=== PATIENT | male | born 1980 | race Caucasian/White ===

== ENCOUNTER → 2020-10-08 | Outpatient (CLI) | payer SELFPAY ==
[~2020-10-08] MED LIST: ACHD5005 PO; DOCU-143 PO; OMEP20CA18 PO
--- NOTE | 2020-10-08 16:39 | Diagnostic Imaging Report ---
PROCEDURE: US venous lower ext annabelle. TECHNIQUE: Multiple real-time grayscale images were obtained over the lower extremities in various projections, bilaterally. Additional duplex Doppler and color Doppler images were also obtained. INDICATION: Bilateral leg swelling. FINDINGS: The veins of the lower extremities have good color filling and compressibility. There is phasic flow and a normal response to augmentation. IMPRESSION: Negative venous Doppler of lower extremities. Dictated by: Dictated on workstation # [id number]
--- NOTE | 2020-10-08 17:12 | Diagnostic Imaging Report ---
PROCEDURE: CT angiography of the chest with contrast. TECHNIQUE: Multiple contiguous axial images were obtained through the chest after uneventful bolus administration of intravenous contrast. 3D reconstructed CTA MIP acquisitions were also performed. Auto Exposure Controls were utilized during the CT exam to meet ALARA standards for radiation dose reduction. INDICATION: Shortness of breath, lower extremity edema. CORRELATION: None FINDINGS: Heart size is normal. Thoracic aortic contour is unremarkable. There is somewhat suboptimal contrast opacification of the pulmonary arteries. There is however suggested some very small filling defect in the peripheral right lower lobe pulmonary artery branch. A large central pulmonary embolism is not present. No pathologically enlarged mediastinal and/or hilar lymph nodes. Gastroesophageal junction is unremarkable. The lung diaz are clear of infiltrate. No significant pleural effusion. The visualized portions of the upper abdomen are unremarkable. The visualized osseous structures demonstrate no acute findings. IMPRESSION: 1. Suboptimal contrast opacification of the pulmonary arterial tree. There does appear to be a small filling defect in the peripheral right lower lobe pulmonary artery branch, suggestive of small embolism. The overall thrombus burden however is considered small. Dictated by: Dictated on workstation # [id number]
== END ==
LOC: RAD 16:00
PROVIDERS: ATTEND Nurse Practitioner Family
DX: R06.02 Shortness of breath (principal); R60.0 Localized edema; R00.0 Tachycardia, unspecified
CPT/HCPCS: 71275; 93970

== ENCOUNTER → 2020-10-09 | Outpatient (CLI) | payer SELFPAY ==
[~2020-10-09] MED LIST changes: +CATHETER FLUSH 10 ML SYR IV PRN; +HOLD METFORMIN - RECEIVED CONTRAST 20 ML VIAL IV SCH; +IOHEXOL 350 MG/ML 100 ML (OMNIPAQUE 350) VIAL IV ONE; +NS 100 ML (IVPB) BAG IV ONE
== END ==
LOC: CARD 09:46
PROVIDERS: ATTEND Nurse Practitioner Family
DX: I51.7 Cardiomegaly (principal)
CPT/HCPCS: 93306

== ENCOUNTER 2020-10-16 17:06 | Emergency (ER) | payer SELFPAY ==
[~2020-10-16] VITALS: Ht 187 cm; Wt 163.6 kg
[~2020-10-16 17:06] MED LIST changes: -CATHETER FLUSH 10 ML SYR IV PRN; -HOLD METFORMIN - RECEIVED CONTRAST 20 ML VIAL IV SCH; -IOHEXOL 350 MG/ML 100 ML (OMNIPAQUE 350) VIAL IV ONE; -NS 100 ML (IVPB) BAG IV ONE
[2020-10-16 17:42] LABS: BASOPHILS # (AUTO) 0.1 10^3/uL (0.0-0.1); BASOPHILS % (AUTO) 1 % (0-10); EOSINOPHILS # (AUTO) 0.6 10^3/uL (0.0-0.3); EOSINOPHILS % (AUTO) 5 % (0-10); HEMATOCRIT 46 % (40-54); HEMOGLOBIN 15.4 g/dL (13.3-17.7); LYMPHOCYTES # (AUTO) 2.4 10^3/uL (1.0-4.0); LYMPHOCYTES % (AUTO) 17 % (12-44); MEAN CORPUSCULAR HEMOGLOBIN 31 pg (25-34); MEAN CORPUSCULAR HGB CONC 34 g/dL (32-36); MEAN CORPUSCULAR VOLUME 91 fL (80-99); MEAN PLATELET VOLUME 9.6 fL (9.0-12.2); MONOCYTES # (AUTO) 0.9 10^3/uL (0.0-1.0); MONOCYTES % (AUTO) 7 % (0-12); NEUTROPHILS # (AUTO) 10.1 10^3/uL (1.8-7.8); NEUTROPHILS % (AUTO) 71 % (42-75); PLATELET COUNT 377 10^3/uL (130-400); WHITE BLOOD COUNT 14.3 10^3/uL (4.3-11.0)
--- NOTE | 2020-10-16 17:46 | ED Chest Pain ---
General Chief Complaint: Chest Pain Stated Complaint: DX W/ PULMONARY EMBOLISM/CP/SOB Source: patient Exam Limitations: no limitations History of Present Illness Date Seen by Provider: October 16, 2020 Time Seen by Provider: 17:44 Initial Comments To ER with reports of shortness of breath and chest tightness. It seems to be worse by laying down. No fevers or chills but he does have a cough. He was a former smoker of cigarettes 1.5 packs/day but he quit 1 week ago. He was diagnosed on October 08 with a small right lower lobe pulmonary embolism and he has been on Xarelto since then. He had an echocardiogram revealing a normal ejection fraction without evidence of right heart strain at the time of diagnosis. Timing/Duration: changing over time Severity/Quality: moderate Location: central Radiation: no radiation ASA po NURSING SERVICE DIRECTOR: No NTG SL NURSING SERVICE DIRECTOR: No Associated Symptoms: shortness of breath Allergies and Home Medications Allergies Coded Allergies: No Known Drug Allergies (Unverified , 10/29/15) Home Medications Albuterol Sulfate 2.5 Mg/3 Ml Vial.neb, 2.5 MG INH Q4H PRN for SHORTNESS OF BREATH Prescribed by: ELLY AREVALO on 10/16/201817 Cefdinir 300 Mg Capsule, 300 MG PO BID Prescribed by: ELLY AREVALO on 10/16/201825 Omeprazole 20 Mg Capsule.dr, 20 MG PO BID, (Reported) Pantoprazole Sodium 40 Mg Tablet.dr, 40 MG PO DAILY Prescribed by: ELLY AREVALO on 10/16/201819 Prednisone 20 Mg Tab, 40 MG PO DAILY Prescribed by: ELLY AREVALO on 10/16/201817 Patient Home Medication List Home Medication List Reviewed: Yes Review of Systems Review of Systems Constitutional: see HPI; No chills, No fever EENTM: No Symptoms Reported Respiratory: See HPI, Cough, Shortness of Air Cardiovascular: See HPI, Chest Pain Gastrointestinal: No Symptoms Reported Genitourinary: No Symptoms Reported Musculoskeletal: no symptoms reported Skin: no symptoms reported Psychiatric/Neurological: No Symptoms Reported Endocrine: No Symptoms Reported Hematologic/Lymphatic: No Symptoms Reported Past Piglmud-Ycjoom-Zeopqu Hx Patient Social History Recent Hopitalizations: No Past Medical History Abdominal, Appendectomy Reproductive Disorders: No HIV/AIDS: No Gastroesophageal Reflux Loss of Vision: Bilateral Hearing Impairment: Denies Anxiety Adverse Reaction/Blood Tranf: No (N/A) Physical Exam Vital Signs Vital Signs - First Documented 10/16/20 17:10 Temp 36.2 Pulse 101 Resp 20 B/P (MAP) 142/106 (118) Pulse Ox 98 O2 Delivery Room Air Capillary Refill : Height, Weight, BMI Height: 6'3" Weight: 249lbs. 6.0oz. 112.306616mb; 29.00 BMI Method:Stated General Appearance: No Apparent Distress, WD/WN, Other (No distress. Heart rate of 97, blood pressure 130/100, oxygen 95% room air respiratory rate 19. No accessory muscle use.) Neck: Full Range of Motion, Normal Inspection Respiratory: No Accessory Muscle Use, No Respiratory Distress Cardiovascular: Regular Rate, Rhythm, Normal Peripheral Pulses, Other (Heart rate of 97) Gastrointestinal: Non Tender, Soft Extremity: Normal Capillary Refill, Normal Inspection Neurologic/Psychiatric: Alert, Oriented x3 Skin: Normal Color, Warm/Dry Progress/Results/Core Measures Results/Orders Lab Results Laboratory Tests Test 10/16/20 17:20 Range/Units White Blood Count 14.3 H 4.3-11.0 10^3/uL Red Blood Count 5.03 4.30-5.52 10^6/uL Hemoglobin 15.4 13.3-17.7 g/dL Hematocrit 46 40-54 % Mean Corpuscular Volume 91 80-99 fL Mean Corpuscular Hemoglobin 31 25-34 pg Mean Corpuscular Hemoglobin Concent 34 32-36 g/dL Red Cell Distribution Width 12.8 10.0-14.5 % Platelet Count 377 130-400 10^3/uL Mean Platelet Volume 9.6 9.0-12.2 fL Immature Granulocyte % (Auto) 1 % Neutrophils (%) (Auto) 71 42-75 % Lymphocytes (%) (Auto) 17 12-44 % Monocytes (%) (Auto) 7 0-12 % Eosinophils (%) (Auto) 5 0-10 % Basophils (%) (Auto) 1 0-10 % Neutrophils # (Auto) 10.1 H 1.8-7.8 10^3/uL Lymphocytes # (Auto) 2.4 1.0-4.0 10^3/uL Monocytes # (Auto) 0.9 0.0-1.0 10^3/uL Eosinophils # (Auto) 0.6 H 0.0-0.3 10^3/uL Basophils # (Auto) 0.1 0.0-0.1 10^3/uL Immature Granulocyte # (Auto) 0.1 0.0-0.1 10^3/uL Neutrophils % (Manual) 67 % Lymphocytes % (Manual) 23 % Monocytes % (Manual) 3 % Eosinophils % (Manual) 7 % Basophils % (Manual) 0 % Band Neutrophils 0 % Blood Morphology Comment NORMAL Sodium Level 140 135-145 MMOL/L Potassium Level 3.9 3.6-5.0 MMOL/L Chloride Level 102 98-107 MMOL/L Carbon Dioxide Level 26 21-32 MMOL/L Anion Gap 12 5-14 MMOL/L Blood Urea Nitrogen 11 7-18 MG/DL Creatinine 1.09 0.60-1.30 MG/DL Estimat Glomerular Filtration Rate > 60 BUN/Creatinine Ratio 10 Glucose Level 95 70-105 MG/DL Calcium Level 9.5 8.5-10.1 MG/DL Corrected Calcium 9.3 8.5-10.1 MG/DL Magnesium Level 2.1 1.6-2.4 MG/DL Total Bilirubin 0.3 0.1-1.0 MG/DL Aspartate Amino Transf (AST/SGOT) 20 5-34 U/L Alanine Aminotransferase (ALT/SGPT) 30 0-55 U/L Alkaline Phosphatase 74 40-136 U/L Troponin I < 0.028 <0.028 NG/ML B-Type Natriuretic Peptide < 10.0 <100.0 PG/ML Total Protein 7.5 6.4-8.2 GM/DL Albumin 4.3 3.2-4.5 GM/DL Procalcitonin 0.03 <0.10 NG/ML My Orders Orders - ELLY AREVALO [employer] Cbc With Automated Diff (10/16/20 17:35) Magnesium (10/16/20 17:35) Chest 1 View, Ap/Pa Only (10/16/20 17:35) Ekg Tracing (10/16/20 17:35) Comprehensive Metabolic Panel (10/16/20 17:35) O2 (10/16/20 17:35) Monitor-Rhythm Ecg Trace Only (10/16/20 17:35) Ed Iv/Invasive Line Start (10/16/20 17:35) BNP (10/16/20 17:35) Troponin I (10/16/20 17:35) Manual Differential (10/16/20 17:20) Albuterol/Ipra Inhalation Soln (Duoneb I (10/16/20 18:00) Svn Small Volume Nebulizer (10/16/20 17:46) Prednisone Tablet (Deltasone Tablet) (10/16/20 18:30) Rx-Albuterol Nebs (Rx-Proventil Nebs) (10/16/20 18:17) Cefdinir Capsule (Omnicef Capsule) (10/16/20 18:30) Procalcitonin (Pct) (10/16/20 18:39) Medications Given in ED Current Medications Medications Dose Ordered Sig/Chiki Route Start Time Stop Time Status Last Admin Dose Admin Albuterol/ Ipratropium 3 ml ONCE ONCE INH 10/16/20 18:00 10/16/20 18:01 DC 10/16/20 17:58 3 ML Cefdinir 300 mg ONCE ONCE PO 10/16/20 18:30 10/16/20 18:31 DC 10/16/20 18:43 300 MG Prednisone 40 mg ONCE ONCE PO 10/16/20 18:30 10/16/20 18:31 DC 10/16/20 18:42 40 MG Vital Signs/I&O 10/16/20 10/16/20 10/16/20 17:10 17:59 18:47 Temp 36.2 Pulse 101 95 Resp 20 18 B/P (MAP) 142/106 (118) 150/110 Pulse Ox 98 93 94 O2 Delivery Room Air Room Air Room Air Diagnostic Imaging Diagonstic Imaging: Xray Comments NAME: GIULIANA [facility]ARR [facility] REC#: [id number] PT STATUS: REG ER : 1980 PHYSICIAN: ELLY AREVALO APRN ADMIT DATE: 10/16/20/ER Draft Date of Exam:10/16/20 CHEST 1 VIEW, AP/PA ONLY INDICATION: Chest pain. COMPARISON: CT dated October 08, 2020. TECHNIQUE: Single radiograph of the chest dated October 16, 2020. FINDINGS: The cardiac silhouette is within normal limits in size. Minimal central pulmonary vascular congestion, appearing slightly more prominent than the prior examination. The left lung appears clear of focal pulmonary opacity. Minimal right basilar interstitial opacities are present, appearing new. No significant pleural effusion. No pneumothorax. No acute osseous abnormality. IMPRESSION: Minimal central pulmonary vascular congestion, appearing slightly more prominent than the prior examination. Mild right basilar atelectasis and/or pneumonitis, appearing new since the prior examination. Dictated on workstation # [id number] Dict: 10/16/20 1755 Trans: 10/16/20 1800 AS6 [id number] Interpreted by: MORGAN MEDINA MD Electronically signed by: Departure Communication (Admissions) [id number] hemodynamically stable without tachypnea hypoxia or hypotension. He has been compliant with his Xarelto regimen. We will discharged home for COPD exacerbation. He has a nebulizer machine at home but no medication to use for it. Impression Primary Impression: Chest pain Additional Impression: History of pulmonary embolus (PE) Disposition: HOME, SELF-CARE Condition: Stable Departure-Patient Inst. Decision time for Depature: 18:15 Referrals: [facility] (PCP/Family) Primary Care Physician Patient Instructions: Chest Pain, Adult ED Add. Discharge Instructions: 1. Steroids and inhaler as directed. The antibiotics as well. I do not think this is bacterial but you are at higher risk for a bacterial cause of COPD flareup given the history of smoking (it affects the cilia which helps to clear secretions out of out lungs) follow-up with [facility] next week. All discharge instructions reviewed with patient and/or family. Voiced understanding. Scripts Cefdinir (Cefdinir) 300 Mg Capsule 300 MG PO BID, #14 CAP Prov: ELLY AREVALO APRN 10/16/20 Pantoprazole Sodium (Protonix) 40 Mg Tablet.dr 40 MG PO DAILY, #10 TAB Prov: ELLY AREVALO APRN 10/16/20 Albuterol Sulfate (Albuterol Sulfate) 2.5 Mg/3 Ml Vial.neb 2.5 MG INH Q4H PRN for SHORTNESS OF BREATH, #25 EA Prov: ELLY AREVALO APRN 10/16/20 Prednisone (Prednisone) 20 Mg Tab 40 MG PO DAILY, #6 TAB 0 Refills Prov: ELLY AREVALO APRN 10/16/20 Copy Copies To 1: HARPAL MOSES MD, PETER J APRN October 16, 2020 17:46
[2020-10-16 17:47] LABS: ALBUMIN 4.3 GM/DL (3.2-4.5); CHLORIDE 102 MMOL/L (98-107); POTASSIUM 3.9 MMOL/L (3.6-5.0); SODIUM 140 MMOL/L (135-145)
[2020-10-16 17:48] LABS: CALCIUM 9.5 MG/DL (8.5-10.1)
[2020-10-16 17:49] LABS: GLUCOSE 95 MG/DL (70-105)
[2020-10-16 17:50] LABS: TOTAL PROTEIN 7.5 GM/DL (6.4-8.2)
[2020-10-16 17:51] LABS: BILIRUBIN,TOTAL 0.3 MG/DL (0.1-1.0); CARBON DIOXIDE 26 MMOL/L (21-32)
[2020-10-16 17:53] LABS: ALKALINE PHOSPHATASE 74 U/L (40-136); CREATININE SERUM 1.09 MG/DL (0.60-1.30); GFR ESTIMATED > 60
[2020-10-16 17:54] LABS: BUN/CREATININE RATIO 10
[2020-10-16 17:56] LABS: ALANINE AMINOTRANSFERASE 30 U/L (0-55); MAGNESIUM 2.1 MG/DL (1.6-2.4)
[2020-10-16] MEDS ORDERED: RT-ALBUTEROL/IPRATROPIUM 3 ML (DUONEB) VIAL INH ONE (18:00)
--- NOTE | 2020-10-16 18:00 | Diagnostic Imaging Report ---
INDICATION: Chest pain. COMPARISON: CT dated October 08, 2020. TECHNIQUE: Single radiograph of the chest dated October 16, 2020. FINDINGS: The cardiac silhouette is within normal limits in size. Minimal central pulmonary vascular congestion, appearing slightly more prominent than the prior examination. The left lung appears clear of focal pulmonary opacity. Minimal right basilar interstitial opacities are present, appearing new. No significant pleural effusion. No pneumothorax. No acute osseous abnormality. IMPRESSION: Minimal central pulmonary vascular congestion, appearing slightly more prominent than the prior examination. Mild right basilar atelectasis and/or pneumonitis, appearing new since the prior examination. Dictated by: Dictated on workstation # [id number]
[2020-10-16 18:03] LABS: BAND NEUTROPHILS 0 %; BASOPHILS % (MANUAL) 0 %; EOSINOPHILS % (MANUAL) 7 %; LYMPHOCYTES % (MANUAL) 23 %; MONOCYTES % (MANUAL) 3 %; NEUTROPHILS % (MANUAL) 67 %; RBC MORPH NORMAL
[2020-10-16] MEDS ORDERED: RX-ALBUTEROL NEB 2.5 MG/3 ML PACK #5 IH STA (18:17)
[2020-10-16] MEDS ORDERED: ALBU2.5V4 INH (18:18)
[2020-10-16] MEDS ORDERED: PRD20T PO (18:18)
[2020-10-16] MEDS ORDERED: PANT40TA2 PO (18:20)
[2020-10-16] MEDS ORDERED: CEFD300C3 PO (18:26)
[2020-10-16] MEDS ORDERED: predniSONE 20 MG TAB PO ONE (18:30)
[2020-10-16] MEDS ORDERED: CEFDINIR 300 MG (OMNICEF) CAP PO ONE (18:30)
[2020-10-16 18:47] VITALS: BP 150/110
== END 2020-10-16 18:49 | disposition home or self-care (01) ==
LOC: EDUNIT# 17:06 → ER 17:08
DX: J44.1 Chronic obstructive pulmonary disease with (acute) exacerbation (principal); K21.9 Gastro-esophageal reflux disease without esophagitis; Z86.711 Personal history of pulmonary embolism; Z79.01 Long term (current) use of anticoagulants; Z87.891 Personal history of nicotine dependence; Z79.899 Other long term (current) drug therapy
CPT/HCPCS: 36415; 71045; 80053; 83735; 83880; 84145; 84484; 85007; 85027; 93005; 93041; 94640; 94664

== ENCOUNTER → 2021-01-14 | Outpatient (CLI) | payer OTHER ==
[~2021-01-14] MED LIST changes: +ALBU2.5V4 INH; +CATHETER FLUSH 10 ML SYR IV PRN; +CEFD300C3 PO; +PANT40TA2 PO; +PRD20T PO; +REGADENOSON 0.4 MG/5 ML SYR (LEXISCAN) IV ONE
[2021-01-14 12:49] VITALS: BP 152/80
--- NOTE | 2021-01-14 15:14 | Cardiology Stress Test Report ---
Stress Test Report Date of Procedure/Referring: Date of Procedure: Jan 14, 2021 PCP Wesly Gerardo MD Admitting Physician Center/[facility] Indications: CP Baseline Heart Rate: 93 Baseline Blood Pressure: Blood Pressure Systolic: 152 Blood Pressure Diastolic: 80 Baseline Vitals Vital Signs Date Time Temp Pulse Resp B/P (MAP) Pulse Ox O2 Delivery O2 Flow Rate FiO2 01/14/21 12:49 93 152/80 (104) 97 Baseline EKG: Baseline EKG: NSR Summary After explaining the procedure to the patient, he signed a consent and then brought to the stress nuclear laboratory. Patient received 0.4 mg Lexiscan for stress test, ECG, heart rate and blood pressure were monitored continuously. Resting and stress dose of radio tracer w ere injected, imaging was acquired and reviewed in short axis, horizontal long axis and vertical long axis views. TID: 1.06 SSS: 6 SDS: 6 EF: 64 1. Patient tolerated Lexiscan well 2. Diaphragmatic attenuation with mild decrease uptake involving the mid to apical inferior wall and inferolateral wall with mild reversibility 3. Normal left ventricular size, EF 64% WESLY GERARDO MD Jan 14, 2021 15:14
== END ==
LOC: CARD 11:30
PROVIDERS: ATTEND Internal Medicine Cardiovascular Disease
DX: I25.10 Atherosclerotic heart disease of native coronary artery without angina pectoris (principal); I10 Essential (primary) hypertension
CPT/HCPCS: 78452; 93017; A9502

== ENCOUNTER 2021-02-18 06:38 | Day surgery (SDC) | payer OTHER ==
[~2021-02-18] VITALS: Ht 188 cm; Wt 168.8 kg
[2021-02-18] VITALS (9 sets, daily range): BP systolic 114–152; BP diastolic 73–93
[~2021-02-18 06:38] MED LIST changes: -CATHETER FLUSH 10 ML SYR IV PRN; -REGADENOSON 0.4 MG/5 ML SYR (LEXISCAN) IV ONE
[2021-02-18] MEDS ORDERED: LIDOCAINE 1% INJ 20 ML 20 ML VIAL ONE (06:47)
[2021-02-18] MEDS ORDERED: HEParin 1000 UNIT/ML (10ML VIAL) FOR BOLUS ONE (06:47)
[2021-02-18] MEDS ORDERED: NS IV 1000 ML 3,000 ML ONE (06:47)
[2021-02-18] MEDS ORDERED: NS IV 1000 ML 1,000 ML IV SCH ×2 (07:00→09:00)
[2021-02-18 07:18] LABS: BILIRUBIN,URINE NEGATIVE (NEGATIVE); CLARITY,URINE CLEAR; COLOR,URINE YELLOW; GLUCOSE, URINE (UA) NEGATIVE (NEGATIVE); KETONES,URINE NEGATIVE (NEGATIVE); LEUKOCYTE ESTERASE ,URINE NEGATIVE (NEGATIVE); NITRITE,URINE NEGATIVE (NEGATIVE); PROTEIN,URINE NEGATIVE (NEGATIVE)
[2021-02-18 07:21] LABS: HEMATOCRIT 47 % (40-54); HEMOGLOBIN 15.6 g/dL (13.3-17.7); MEAN CORPUSCULAR HEMOGLOBIN 30 pg (25-34); MEAN CORPUSCULAR HGB CONC 33 g/dL (32-36); MEAN CORPUSCULAR VOLUME 90 fL (80-99); MEAN PLATELET VOLUME 9.8 fL (9.0-12.2); PLATELET COUNT 338 10^3/uL (130-400); WHITE BLOOD COUNT 12.4 10^3/uL (4.3-11.0)
[2021-02-18] MEDS ORDERED: fentaNYL INJ 100 MCG/2 ML AMP ONE (07:21)
[2021-02-18] MEDS ORDERED: MIDAZOLAM 5 MG/5 ML (VERSED) VIAL ONE (07:21)
[2021-02-18 07:34] LABS: PROTHROMBIN TIME PATIENT 13.2 SEC (12.2-14.7)
--- NOTE | 2021-02-18 07:38 | Diagnostic Imaging Report ---
Indication: Abnormal stress test. Chest pain. Comparison with 10/16/2020. FINDINGS: Portable chest. The lungs are clear. Heart is not enlarged. No pulmonary edema or hilar adenopathy. No pneumothorax or pleural effusion. No bony abnormalities. IMPRESSION: Normal portable chest. Dictated by: Dictated on workstation # [id number]
[2021-02-18 07:41] LABS: AMORPHOUS SEDIMENT,UR RARE AMOR URATES /LPF; BACTERIA,URINE NEGATIVE /HPF; SQUAMOUS EPITHELIAL CELL,UR 0-2 /HPF; WBC,URINE RARE /HPF
[2021-02-18 07:42] LABS: ALBUMIN 4.2 GM/DL (3.2-4.5); BILIRUBIN,TOTAL 0.5 MG/DL (0.1-1.0); CALCIUM 9.6 MG/DL (8.5-10.1); CREATININE SERUM 0.97 MG/DL (0.60-1.30); POTASSIUM 4.1 MMOL/L (3.6-5.0); TOTAL PROTEIN 7.4 GM/DL (6.4-8.2)
[2021-02-18] MEDS ORDERED: RIVA20TA PO (07:45)
[2021-02-18] MEDS ORDERED: ACET325T38 PO (07:45)
[2021-02-18] MEDS ORDERED: TRAZ150T72 PO (07:45)
[2021-02-18] MEDS ORDERED: BUSP15TA60 PO (07:45)
[2021-02-18] MEDS ORDERED: HYDR-3584 PO (07:45)
[2021-02-18] MEDS ORDERED: FLUT1DIS26 IH (07:45)
[2021-02-18] MEDS ORDERED: HYDR25TA4 PO (07:45)
[2021-02-18] MEDS ORDERED: ATOR20TA66 PO (07:45)
[2021-02-18] MEDS ORDERED: RT-ALBUINH IH (07:45)
[2021-02-18] MEDS ORDERED: LATUDA 60MG PO (07:53)
[2021-02-18] MEDS ORDERED: LATUDA (07:53)
--- NOTE | 2021-02-18 07:58 | Conscious Sedation/ASA ---
Conscious Sedation Pre-Proced Time 07:57 ASA Score 3 For ASA 3 and 4: Consider anesthesia and medical clearance. Also, for patients with a history of failed moderate sedation consider anesthesia. Airway Lungs Heart ASA score ASA 1: a normal healthy patient ASA 2: a patient with a mild systemic disease (mid diabetes, controlled hypertension, obesity x ASA 3: a patient with a severe systemic disease that limits activity (angina, COPD, prior Myocardial infarction) ASA 4: a patient with an incapacitating disease that is a constant threat to life (CHF, renal failure) ASA 5: a moribund patient not expected to survive 24 hrs. (ruptured aneurysm) ASA 6: a declared brain- patient whose organs are being harvested. For emergent operations, add the letter E after the classification Mallampati Classification Grade 3 Sedation Plan Analgesia, Amnesia, Plan communicated to team members, Discussed options with patient/fam, Discussed risks with patient/fam The patient is an appropriate candidate to undergo the planned procedure, sedation, and anesthesia. The patient immediately re-assessed prior to indication. WESLY HERNANDEZ MD Feb 18, 2021 07:58
[2021-02-18] MEDS ORDERED: NITRO DRIP 25000 MCG/D5W 250 ML IV ONE (08:01)
[2021-02-18] MEDS ORDERED: VERAPAMIL 5 MG/2 ML (CALAN) VIAL IV ONE (08:01)
--- NOTE | 2021-02-18 08:48 | Discharge Inst-Post CATH ---
Discharge Inst-CATH/EP Problems Reviewed?: Yes Post Cardiac Cath/EP D/C Inst Follow Up/Plan Appointment with Dr. Gerardo's office in 2 to 4 weeks <b>CARDIAC CATH/EP PROCEDURE DISCHARGE INSTRUCTIONS</b> ACTIVITY * Go Home directly and rest. * Limit activity of the leg (or wrist if it was used) for 7 days including aer obics, swimming, jogging, bicycling, etc. * Restrict stair-climbing for 7 days if possible, if not, climb up with your non-cath leg, then bring together on the same step. * Avoid lifting, pushing, pulling or excessive movement of the affected extremi ty for 7 days. * Customary sexual activity may be resumed after 2 days-use caution not to use a position that strains or causes pain to the affected extremity. * No driving for 24 hours. * NO SMOKING. * Avoid straining for bowel movements for 7 days. * Gentle walking on level ground is allowed. * Returning to work will depend on the type of procedure and the results. Your doctor will discuss this with you. CALL YOUR DOCTOR FOR ANY OF THE FOLLOWING: *If bleeding from the puncture site occurs- Apply gentle pressure to site with clean cloth and call your doctor or EMS. * If a knot or lump forms under the skin, increases in size, or causes pain. * If bruising appears to be worsening or moving further down your leg instead of disappearing. * Temperature above 101 F. CARE OF YOUR GROIN INCISION; * Bruising or purple discoloration of the skin near the puncture site is common. * You may shower only, no bathtub bathing for 5 days. Be careful to avoid slipping as your leg may feel stiff. * If a closure device was used on your femoral artery, please see the attached guide regarding care of the device and your leg. * Leave dressing on FOR 24 hours. CARE OF YOUR WRIST INCISION; * Bruising or purple discoloration of the skin near the puncture site is common. * You may shower. * DO NOT submerge wrist. * Leave dressing on FOR 24 hours. WESLY GERARDO MD Feb 18, 2021 08:48
--- NOTE | 2021-02-18 08:51 | Cardiac Cath Report ---
Cardiac Cath Report Physician (s)/Grand Scribe (s) Physician WESLY HERNANDEZ MD Pre-Procedure Diagnosis Pre-Procedure Diagnosis: Coronary artery disease Post-Procedure Note Procedure Start Date: Feb 18, 2021 Name of Procedure: Left heart catheterization Findings/Procedure Note PROCEDURE NOTE: 40 years old gentleman with paroxysmal atrial fibrillation, had an abnormal stress test, scheduled for cardiac catheterization possible PTCA. After explaining the procedure to the patient, all pros and cons were explained, all questions were answered. The patient signed the consent and then he was placed on the cardiac catheterization laboratory. Groin was prepped SL fashion local anesthesia was used. Sheath placed in the right radial artery, [place] catheter was advanced to the left ventricular cavity, pressure was measured, pullback and intubated the left coronary system and angiogram was done then exchanged to Angela right catheter and intubated the right coronary artery and angiogram was done At the end of the procedure the sheath was removed. Vascular band deployed FINDINGS: Hemodynamics LV 114/25, end-diastolic pressure of 25 Aorta 114/85 mean of 98 ANATOMY: Left Main is free of obstructive disease Left Anterior Descending is free of obstructive disease Left Circumflex is free of obstructive disease Right Coronary Artery is free of obstructive disease LV Gram was not done, pressure was measured CONCLUSION: 1. No significant obstructive coronary artery disease 2. Mildly elevated left ventricular end-diastolic pressure DISCUSSION AND RECOMMENDATION: Patient had an abnormal stress test probably due to extracardiac attenuation. Anesthesia Type: Conscious Sedation Estimated blood loss (mL): 5 ml Contrast Amount: 33 ml Total Radiation Dose: 493 mGy Post-Procedure Diagnosis Post-operative diagnosis: Coronary artery disease Paroxysmal atrial fibrillation WESLY HERNANDEZ MD Feb 18, 2021 08:51
--- NOTE | 2021-03-05 11:21 | Cardiology History & Physical ---
HPI-Cardiology Cardiology Consultation Date of Consultation February 18, 2021 Date of Admission Time Seen by Provider: 11:20 Indication: CP HPI 40 years old gentleman with abnormal stress test, pulmonary embolism, peripheral edema, has been having chest pain, scheduled for cardiac catheterization possible PTCA PMH-Cardiology Surgeries Yes (HERNIA) Appendectomy Respiratory No Cardiovascular No Neurological No Reproductive System Hx Reproductive Disorders: No HIV/AIDS: No Gastrointestinal Yes (UMBILICAL HERNIA) Gastroesophageal Reflux Musculoskeletal No Endocrine No HEENT Loss of Vision: Bilateral Hearing Impairment: Denies Cancer No Psychosocial Yes Anxiety Integumentary No Blood Transfusions No Adverse Rxn to Transfusion: No (N/A) Social History Patient Social History Marrital Status: ROS-Cardiology Review of Systems General: No Chills, No Night Sweats, No Fatigue, No Malaise, No Appetite HEENT: No Head Aches, No Visual Changes, No Eye Pain, No Ear Pain, No Dysphasia, No Sinus Congestion, No Post Nasal Drip, No Sore Throat Pulmonary: Dyspnea; No Cough, No Pleuritic Chest Pain Cardiovascular: Chest Pain; No: Palpitations, Orthopnea, Paroxysmal Noc. Dyspnea, Edema, Lt Headedness Gastrointestinal: No: Nausea, Vomiting, Abdominal Pain, Diarrhea, Constipation, Melena, Hematochezia Genitourinary: No Dysuria, No Frequency, No Incontinence, No Hematuria, No Retention Musculoskeletal: No: neck pain, shoulder pain, arm pain, back pain, hand pain, leg pain, foot pain Neurological: No: Weakness, Numbness, Incoordination, Change in speech, Confusion, Seizures Home Medications & Allergies Allergies: Coded Allergies: No Known Drug Allergies (Unverified , 10/29/15) Home Medication List Reviewed: Yes Exam-Cardiology Exam General Appearance: Alert, Oriented X3, Cooperative, No Acute Distress HEENT: Atraumatic, PERRLA Respiratory: Clear to Auscultation, Normal Air Movement Cardiovascular: Regular Rate, Normal S1, Normal S2, No Murmurs Abdominal: Normal Bowel Sounds, Soft, No Tenderness, No Hepatosplenomegaly, No Masses Extremities: No Clubbing, No Cyanosis, No Edema, Normal Pulses, No Tenderness/Swelling Skin: No Rashes, No Breakdown, No Significant Lesion Neuro: Normal Gait, Normal Speech, Strength at 5/5 X4 Ext, Normal Tone, Sensation Intact Psych/Mental Status: Mental Status NL, Mood NL Results Labs Labs Microbiology 9/29/21 MRSA Screen - Final, Complete MRSA not isolated A/P-Cardiology Admission Diagnosis Chest pain Coronary artery disease Pulmonary embolism Hypertension Admission Status: Observation Assessment/Plan Abnormal stress test on 01/14/21 showing diphragmatic attenuation with mild de crease uptake involving the mid to apical inferior wall and inferior wall and inferolateral wall with mild reversibility. SSS 6, SDS 6, EF 64%. Patient continues to complain of intermittent episodes of chest pain, planning for [facility] for further evaluation. Pulmonary embolism diagnosed on October 16, 2020, unknown etiology, started on oral anticoagulation, maintained on Xarelto. I will evaluate for hypercoagulable state. Continue to monitor Peripheral edema, worsening recently, probably secondary to strain from the pulmonary embolism or underlying sleep apnea and right-sided heart failure,2D echo was done on October 09, 2020 showing normal LV with EF 55 to 65%, left atrium 4.15 cm, PA pressure 25 to 30 mmHg. Chest pain, occasional, more frequent recently, probably secondary to the pulmonary edema, has multiple risk factors for coronary artery disease, had abnormal stress test as discussed above, planning for C. COPD, managed by primary care physician, questionable sleep apnea, having work- up to schedule evaluation by her yield engineer and have a sleep study BMI 47, we discussed weight loss and exercise in addition to limiting salt intake History of anxiety and depression WESLY HERNANDEZ MD Mar 05, 2021 11:21
== END 2021-02-18 11:17 | disposition home or self-care (01) ==
LOC: CATH 06:38 → SDC 09:10 → CATH 11:17
PROVIDERS: ATTEND Internal Medicine Cardiovascular Disease
DX: I25.10 Atherosclerotic heart disease of native coronary artery without angina pectoris (principal); I48.0 Paroxysmal atrial fibrillation; I26.99 Other pulmonary embolism without acute cor pulmonale; K21.9 Gastro-esophageal reflux disease without esophagitis; F32.9 Major depressive disorder, single episode, unspecified; J44.9 Chronic obstructive pulmonary disease, unspecified; E66.9 Obesity, unspecified; F41.9 Anxiety disorder, unspecified; Z68.42 Body mass index [BMI] 45.0-49.9, adult
CPT/HCPCS: 71045; 80053; 80061; 81000; 85027; 85610; 85730; 87081; 93458; C1894; 36415

== ENCOUNTER 2022-07-20 12:20 | Outpatient (CLI) | payer OTHER ==
[~2022-07-20 12:20] MED LIST changes: +ACET325T38 PO; +ALBU8.5H6 IH; +ATOR20TA66 PO; +BUSP15TA60 PO; +FLUT1DIS26 IH; +HYDR-3584 PO; +HYDR25TA4 PO; +LATUDA; +LATUDA 60MG PO; +RIVA20TA PO; +TRAZ150T72 PO
== END 2022-07-20 12:50 ==
LOC: SLEEP 12:20
PROVIDERS: ATTEND Internal Medicine Cardiovascular Disease
DX: G47.33 Obstructive sleep apnea (adult) (pediatric) (principal); I10 Essential (primary) hypertension
CPT/HCPCS: G0399

== ENCOUNTER → 2022-11-01 | Outpatient (CLI) | payer OTHER | LOC: CARD 09:12 | PROVIDERS: ATTEND Internal Medicine Cardiovascular Disease | DX: I10 Essential (primary) hypertension (principal); I25.10 Atherosclerotic heart disease of native coronary artery without angina pectoris | CPT/HCPCS: 93306 ==